=== PATIENT | male | born 1960 | race Caucasian/White ===

== ENCOUNTER 2018-02-08 05:50 | Inpatient (IN) | payer BC ==
[2018-02-01 15:54] VITALS: BMI 33.5
--- NOTE | 2018-02-04 14:45 | HP ---
Admitting History and Physical - Admission Chief Complaint: left hip osteoarthritis x years History of Present Illness: 57 year old male presents today in follow up of his left hip. Longstanding history of left hip osteoarthritis. Patient complains of pain, limited ROM, difficulty ambulating and difficulty completing ADLs. Patient has failed conservative treatment measures including PO medications, activity modification , injections and exercise programs. At this point, patient would like to proceed with surgical intervention - Left total hip arthroplasty, MAKOplasty. History Source: Patient - Past Medical History Cardiovascular: Yes: HTN Renal/: Yes: BPH - Past Surgical History Additional Past Surgical History: See written history & physical - Smoking History Smoking history: Never smoked Have you smoked in the past 12 months: No - Alcohol/Substance Use Hx Alcohol Use: No Home Medications - Allergies Allergies/Adverse Reactions: Allergies Allergy/AdvReac Type Severity Reaction Status Date / Time No Known Allergies Allergy Verified 02/01/18 15:41 - Home Medications Home Medications: Ambulatory Orders Amlodipine Bes/Olmesartan Med [Annemarie 5-20 mg Tablet] 1 each PO DAILY 02/01/18 Tadalafil [Cialis] 5 mg PO DAILY PRN 02/01/18 Review of Systems - Review of Systems Musculoskeletal: reports: Decreased ROM (left hip), Joint Pain (left hip) Physical Examination Constitutional: Yes: Well Nourished, No Distress Eyes: Yes: Conjunctiva Clear HENT: Yes: Atraumatic, Normocephalic Neck: Yes: Supple Cardiovascular: Yes: Regular Rate and Rhythm Respiratory: Yes: Regular Gastrointestinal: Yes: Soft ...Rectal Exam: Yes: Deferred Musculoskeletal: Yes: Joint Stiffness (left hip) Assessment/Plan 57 year old male presents today in follow up of his left hip. Longstanding history of left hip osteoarthritis. Patient complains of pain, limited ROM, difficulty ambulating and difficulty completing ADLs. Patient has failed conservative treatment measures including PO medications, activity modification , injections and exercise programs. At this point, patient would like to proceed with surgical intervention - Left total hip arthroplasty, MAKOplasty. Pros, cons, risks, benefits & alternatives of a left total hip arthroplasty, MAKOplasty were discussed with the patient at length. Patient confirms his understanding and consents to proceed with a left total hip arthroplasty, MAKOplasty.
[2018-02-08] MEDS ORDERED: TRANEXAMIC ACID 1000 MG/10 ML VIAL IVPUSH ONE (06:26)
[2018-02-08] MEDS ORDERED: CEFAZOLIN 2 GM in DEXTROSE 5%-WATER - 50 ML IVPB ONE (06:26)
[2018-02-08] MEDS ORDERED: oxyCODONE HCL 10 MG SUSTAINED ACTING TABLET PO ONE (06:26)
[2018-02-08] MEDS ORDERED: ROPIVICAINE 0.2%/MORPH PF/KETOROLAC - 51ML DISP.SYRINGE IA ONE ×3 (06:26→11:40)
[2018-02-08] MEDS ORDERED: GABAPENTIN 300 MG CAPSULE (FP) PO ONE (06:26)
[2018-02-08] MEDS ORDERED: CELECOXIB 200 MG CAPSULE PO ONE (06:26)
[2018-02-08] MEDS ORDERED: PANTOPRAZOLE 40 MG TABLET (FP) PO ONE (06:27)
[2018-02-08] MEDS ORDERED: VANCOMYCIN 1,000 MG VIAL (RESTRICTED TO ID ONLY) ONE (07:04)
[2018-02-08] MEDS ORDERED: ceFAZolin SODIUM 1 GM VIAL ONE (07:04)
[2018-02-08] MEDS ORDERED: BUPIVACAINE HCL/PF (5 MG/ML) 30 ML VIAL IJ ONE (07:32)
[2018-02-08] MEDS ORDERED: DEXAMETHASONE SOD PHOSPHATE/PF 10 MG/ML SDV ONE (07:32)
[2018-02-08] MEDS ORDERED: LIDOCAINE 1% P/F 10 MG/ML VIAL ONE (07:32)
[2018-02-08] MEDS ORDERED: MIDAZOLAM HCL 2 MG/2 ML SINGLE DOSE VIAL ONE (07:32)
--- NOTE | 2018-02-08 12:07 | OP ---
Operative Note - Note: Operative Date: 02/08/18 Pre-Operative Diagnosis: left hip OA Operation: Left ELKE ELISE Post-Operative Diagnosis: Same as Pre-op Surgeon: Roger Fowler Cleaning Professional: Tomy Echols Anesthesia: Spinal Estimated Blood Loss (mls): 200
--- NOTE | 2018-02-08 12:07 | OP ---
Operative Note - Note: Operative Date: 02/08/18 Pre-Operative Diagnosis: Left hip osteoarthritis Operation: Left hip arthroplasty/makoplasty Post-Operative Diagnosis: Same as Pre-op Surgeon: Roger Fowler Stock Repairer: Tomy Echols Anesthesiologist/CHAINSTITCH BINDER: Chandler Cuenca Anesthesia: General, Spinal Estimated Blood Loss (mls): 200 Operative Report Dictated: Yes
--- NOTE | 2018-02-08 12:09 | SURG ---
Surgery Culinary Assistant Note Culinary Assistant: Tomy Echols PA-C Date of Service: 02/08/18 Diagnosis: Left hip osteoarthritis Procedure: Left hip arthroplasty/makoplasty I was present for the entirety of the operative procedure. For further detail, please refer to operative report.
[2018-02-08] MEDS ORDERED: ONDANSETRON 4 MG/2 ML VIAL IVPUSH PRN ×2 (12:10→12:15)
[2018-02-08] MEDS ORDERED: PROMETHAZINE HCL 25 MG/1 ML VIAL IVPB PRN (12:10)
[2018-02-08] MEDS ORDERED: oxyCODONE HCL 5 MG TABLET PO PRN (12:10)
[2018-02-08] MEDS: KETOROLAC TROMETHAMINE 30 MG/1 ML VIAL IVPUSH SCH ×2 (12:10→17:17)
[2018-02-08] MEDS ORDERED: ACETAMINOPHEN 1000 MG/100 ML VIAL (NON FORMULARY) IVPB ONE (12:14)
[2018-02-08] MEDS ORDERED: LACTATED RINGERS SOLUTION 1,000 ML IV SCH (12:15)
[2018-02-08] MEDS ORDERED: MAGNESIUM HYDROX 2400MG/30ML ORAL SUSPENSION 30 ML CUP PO PRN (12:15)
[2018-02-08] MEDS ORDERED: MAG HYDROX/AL HYDROX/SIMETH 30 ML UNIT-DOSE CUP PO PRN (12:15)
[2018-02-08] MEDS: traMADol HCL 50 MG TABLET PO SCH ×2 (12:16→17:18)
[2018-02-08] MEDS: CEFAZOLIN 2 GM/D5W 2 GM/50 ML ML IVPB SCH (17:17)
[2018-02-08] MEDS: ACETAMINOPHEN 325 MG TABLET (FP) PO SCH (17:18)
[2018-02-08] MEDS ORDERED: DEXAMETHASONE SOD PHOSPHATE 10 MG/1 ML VIAL IVPB ONE (20:00)
--- NOTE | 2018-02-08 21:06 | SPEC ---
DATE OF OPERATION: 02/08/2018 PREOPERATIVE DIAGNOSIS: Left hip osteoarthritis. POSTOPERATIVE DIAGNOSIS: Left hip osteoarthritis. PROCEDURE: Left total hip replacement with MAKOplasty robotic navigation. ATTENDING: Cristian Baugh MD GOSPEL WORKER: Tomy Echols PA-C ANESTHESIA: Spinal plus sedation. ESTIMATED BLOOD LOSS: 200 mL COMPLICATIONS: None. DISPOSITION: The patient was transferred to the PACU in stable condition. IMPLANTS USED: Helena Accolade II size 6 femoral component, Vilma Tritanium 56-mm acetabular component with 30- and 25-mm acetabular screws, MDM bipolar head ball with +4 ceramic inner head. INDICATIONS: This is a 57-year-old male who presented to the office complaining of severe left hip pain. He was seen and examined by Dr. Baugh and diagnosed with left hip osteoarthritis. The patient was initially treated non-operatively with injections, medications, and physical therapy but continued to have severe pain and ambulatory dysfunction. He was, therefore, indicated for a left total hip replacement. The risks, benefits, and alternatives to the procedure were explained to the patient in great detail, and he elected to proceed with the surgery. On the day of surgery, the patient was taken to the operating room and placed on the OR table. Spinal anesthesia was administered by the anesthesiologist. The patient was then positioned in the lateral decubitus position on the table and all bony prominences were padded. An axillary roll was placed. The operative hip was then prepped and draped in the usual sterile fashion and intravenous antibiotics were given for infection prophylaxis. A surgical time-out was then performed with the team, and the patients identity, procedure, side, availability of implants, and the administration of antibiotics were confirmed. An approximately 15-cm longitudinal incision was made through the skin centered on the greater trochanter of the hip. This dissection was carried down through the subcutaneous tissues to the deep fascia. This fascia was then incised and a Cobra was placed around the inferior femoral neck. Electrocautery was used to reflect the anterior 40% of the gluteus medius and minimus starting at the musculotendinous junction and leaving a cuff for closure. This was reflected to reveal the capsule of the hip joint. An anterior capsulectomy was performed and the femoral head and neck were visualized. Grade 4 changes were noted diffusely throughout the joint. At this point, three small stab incisions were made superior to the main incision along the iliac crest. Three self-drilling Steinmann pins were then placed and the Zentrick pelvic array was attached. Reference points on the limb were then entered into the robotic device and the limb length deficiency, offset, and femoral neck resection level were then calculated by the software. The hip was then dislocated with traction and external rotation. An oscillating saw was used to make the femoral neck cut at the level previously templated, and the femoral head was removed. Attention was then turned to the acetabulum. Retractors were then placed around the acetabulum and the labrum was removed. An acetabular checkpoint pin and the Zentrick software were used to register the contours of the acetabulum. The acetabulum was then reamed in a single stage to the preoperatively templated size using the Zentrick robotic arm. The appropriately sized cup was then impacted and had solid fixation as well as the preset inclination and version of 40 and 20 degrees, respectively. A polyethylene liner was then placed in the cup. Attention was then turned back to the femur, which was externally rotated for improved visualization. A femoral neck elevator was used to present the femoral neck cut, a box osteotome was used to enter the femoral canal, and a canal finder was used to go down the femoral shaft. The Gaston broaches were used sequentially until the optimal scratch fit was achieved. This correlated with the preoperatively templated size. From here, several different offset head and neck configurations were tested until excellent stability and length were obtained. These measurements were quantified using the Zentrick software. All trial components were then removed, the femur was copiously irrigated, and the final components were placed. Leg length and stability were checked again and found to be excellent. Irrigation was performed again. Wound closure was started by repairing the abductor muscles with a no. 2 FiberWire stitch in a Krackow configuration passed through bone tunnels in the greater trochanter and tied over a bony bridge. This repair was then reinforced with a 0 V-Loc 180 barbed suture. Next, no. 1 Polysorb and 0 V-Loc 180 were used to close the fascia. The deep subcutaneous tissue was closed with no. 1 Polysorb sutures, and 2-0 Polysorb was used for the superficial subcutaneous tissue. The skin was closed using both 3-0 V-Loc 90 suture in a running subcuticular fashion and SwiftSet skin adhesive. The Gaston array and pins were removed from the iliac crest and the stab incision sites were irrigated and closed with 4-0 Polysorb sutures and SwiftSet skin adhesive. Once this was completed, a sterile dressing was applied. The patient was then awakened and taken to the PACU in stable condition. ADDENDUM: After final implants were placed, a 3-minute dilute Betadine lavage was performed. Following this, the wound was thoroughly irrigated with normal saline, and wound closure was begun. CRISTIAN BAUGH M.D. [id number]
[2018-02-08] MEDS: ASCORBIC ACID 500 MG TABLET (FP) PO SCH (21:12)
[2018-02-08] MEDS: oxyCODONE HCL 10 MG SUSTAINED ACTING TABLET PO SCH (21:12)
[2018-02-08] MEDS: GABAPENTIN 300 MG CAPSULE (FP) PO SCH (21:12)
[2018-02-08] MEDS: CELECOXIB 200 MG CAPSULE PO SCH (21:12)
[2018-02-08] MEDS: SENNOSIDES/DOCUSATE COMBO (SENNA PLUS) TABLET (UD) PO SCH (22:00)
[2018-02-09] MEDS: traMADol HCL 50 MG TABLET PO SCH ×4 (00:15→18:06)
[2018-02-09] MEDS: KETOROLAC TROMETHAMINE 30 MG/1 ML VIAL IVPUSH SCH ×2 (00:15→05:53)
[2018-02-09] MEDS: CEFAZOLIN 2 GM/D5W 2 GM/50 ML ML IVPB SCH (01:19)
[2018-02-09] MEDS: ACETAMINOPHEN 325 MG TABLET (FP) PO SCH ×4 (05:54→18:05)
[2018-02-09 08:06] LABS: HEMATOCRIT 39.1 % (35.4-49); HEMOGLOBIN 12.7 GM/dl (11.7-16.9); MCH 29.5 pg (25.7-33.7); MCHC 32.6 g/dl (32.0-35.9); MEAN CELL VOLUME 90.5 fl (80-96); MEAN PLT VOLUME 8.3 fl (7.5-11.1); PLATELET COUNT 312 K/MM3 (134-434); RBC 4.32 M/mm3 (4.00-5.60); RDW 13.5 % (11.9-15.9); WHITE BLOOD COUNT 16.5 K/mm3 (4.0-10.8)
[2018-02-09] MEDS: ASPIRIN 325 MG TABLET PO SCH (09:00)
[2018-02-09] MEDS: SENNOSIDES/DOCUSATE COMBO (SENNA PLUS) TABLET (UD) PO SCH ×2 (09:53→21:15)
[2018-02-09] MEDS: VALSARTAN 160 MG TABLET (UD) PO SCH (09:54)
[2018-02-09] MEDS: GABAPENTIN 300 MG CAPSULE (FP) PO SCH ×2 (09:54→21:15)
[2018-02-09] MEDS: amLODIPine BESYLATE 5 MG TABLET (FP) PO SCH (09:54)
[2018-02-09] MEDS: CELECOXIB 200 MG CAPSULE PO SCH ×2 (09:55→21:16)
[2018-02-09] MEDS: MULTIVITAMINS (DAILY MVI) TABLET (FP) PO SCH (09:55)
[2018-02-09] MEDS: PANTOPRAZOLE 40 MG TABLET (FP) PO SCH (09:55)
[2018-02-09] MEDS: ASCORBIC ACID 500 MG TABLET (FP) PO SCH ×2 (09:56→21:15)
[2018-02-09] MEDS: oxyCODONE HCL 10 MG SUSTAINED ACTING TABLET PO SCH ×2 (09:56→21:16)
[2018-02-09] MEDS: oxyCODONE HCL 5 MG TABLET PO PRN ×2 (09:57→21:28)
[2018-02-09] MEDS ORDERED: PATIENT'S OWN MEDICATION (NON-FORMULARY) (Amlodipine Bes/Olmesartan Med [Azor 5-20 Mg Tabl PO SCH (10:00)
--- NOTE | 2018-02-09 12:57 | PN ---
Progress Note (short form) - Note Progress Note: 57M POD1 s/p L THR under spinal anesthetic with peripheral nerve block for post operative pain relief. Pt states that pain is well controlled and reports no anesthetic complications. AVSS. Motor and sensory function intact in bilateral lower extremities. Continue current regimen.
[2018-02-10] MEDS: traMADol HCL 50 MG TABLET PO SCH ×3 (00:15→11:55)
[2018-02-10] MEDS: ACETAMINOPHEN 325 MG TABLET (FP) PO SCH ×3 (06:03→11:55)
[2018-02-10] MEDS: ASPIRIN 325 MG TABLET PO SCH (08:05)
[2018-02-10 08:23] LABS: HEMATOCRIT 37.1 % (35.4-49); HEMOGLOBIN 12.3 GM/dl (11.7-16.9); MCH 30.2 pg (25.7-33.7); MCHC 33.2 g/dl (32.0-35.9); MEAN CELL VOLUME 91.1 fl (80-96); MEAN PLT VOLUME 8.1 fl (7.5-11.1); PLATELET COUNT 290 K/MM3 (134-434); RBC 4.08 M/mm3 (4.00-5.60); RDW 13.6 % (11.9-15.9); WHITE BLOOD COUNT 12.5 K/mm3 (4.0-10.8)
[2018-02-10 08:25] LABS: ANION GAP 8 MMOL/L (8-16); BLOOD UREA NITROGEN 23 mg/dl (7-18); CALCIUM 8.9 mg/dl (8.4-10.2); CHLORIDE 99 mmol/L (98-107); CO2 27 mmol/L (22-28); CREATININE 1.1 mg/dl (0.6-1.3); GLUCOSE,RANDOM 107 mg/dl (74-106); POTASSIUM 4.1 mmol/L (3.5-5.1); SODIUM 134 mmol/L (136-145)
[2018-02-10 09:10] VITALS: BP 120/62; PULSE 68; TEMP 98.4
[2018-02-10] MEDS: ASCORBIC ACID 500 MG TABLET (FP) PO SCH (09:10)
[2018-02-10] MEDS: MULTIVITAMINS (DAILY MVI) TABLET (FP) PO SCH (09:10)
[2018-02-10] MEDS: amLODIPine BESYLATE 5 MG TABLET (FP) PO SCH (09:10)
[2018-02-10] MEDS: CELECOXIB 200 MG CAPSULE PO SCH (09:10)
[2018-02-10] MEDS: GABAPENTIN 300 MG CAPSULE (FP) PO SCH (09:10)
[2018-02-10] MEDS: SENNOSIDES/DOCUSATE COMBO (SENNA PLUS) TABLET (UD) PO SCH (09:10)
[2018-02-10] MEDS: VALSARTAN 160 MG TABLET (UD) PO SCH (09:10)
[2018-02-10] MEDS: PANTOPRAZOLE 40 MG TABLET (FP) PO SCH (09:10)
[2018-02-10] MEDS: oxyCODONE HCL 10 MG SUSTAINED ACTING TABLET PO SCH (09:11)
--- NOTE | 2018-02-10 13:11 | DS ---
Physical Examination Vital Signs: Vital Signs Temperature 98.4 F 02/10/18 09:09 Pulse Rate 68 02/10/18 09:09 Respiratory Rate 17 02/10/18 09:09 Blood Pressure 120/62 02/10/18 09:09 O2 Sat by Pulse Oximetry (%) 96 02/10/18 06:00 Labs: CBC, BMP 02/10/18 07:00 02/10/18 07:00 Discharge Summary Reason For Visit: LEFT HIP OSTEOARTHRITIS Current Active Problems Osteoarthritis of left hip (Acute) Procedures: Principal: left ELKE ELISE Hospital Course: Admitted for elective surgery. Procedure performed without complications. Pt received postoperative antibiotic prophylaxis and DVT ppx. Ambulated with physical therapy. Stable for discharge home with outpatient followup. Condition: Stable - Instructions Diet, Activity, Other Instructions: Dr Fowler - Hip Replacement Instructions Keep the Aquacel dressing on until removed by Dr. Fowler in 10-14 days - it is antibacterial and waterproof and you can shower with it on. Call the office for a follow-up appointment with Dr. Fowler in 10-14 days. Take one Aspirin 325mg daily for 6 weeks to prevent blood clots in your legs. Take one Pantoprazole 40mg daily for 6 weeks to protect against heartburn and ulcers. Take Cephalexin (antibiotic) 3x/day for 10 days to help prevent skin infection. Take Celebrex 200mg twice daily for 30 days to reduce swelling and inflammation. Take a multivitamin, stool softener and extra Vitamin C supplement daily. For pain: *Mild pain (1-3/10): Take 1 Tramadol tablet every 4 hours as needed. Moderate pain (4-6/10): Take 1 Tramadol tablet and 1 Percocet tablet every 4 hours as needed. Severe pain (7-10/10): Take 1 Tramadol tablet and 2 Percocet tablets every 4 hours as needed. Activity: You can put as much weight on the operative leg as you want. For the first 6 weeks, all you need to do is walk around the house, go up/down stairs, and sit down/get up. After 6 weeks when everything is healed (and bone has grown into the implant) you will be sent for more intensive outpatient physical therapy. Always use a walker or cane for balance and to prevent falls. Expect to see swelling / bruising from the operative site all the way down to your toes. Wear the Compression stocking on the operative side during the day to minimize how much swelling there is in your foot/ankle. Don't wear the stocking at night. You don't have to wear the stocking on the other side. Disposition: VNS/HOME HEALTH CARE - Home Medications Comprehensive Discharge Medication List: Ambulatory Orders Amlodipine Bes/Olmesartan Med [Annemarie 5-20 mg Tablet] 1 each PO DAILY 02/01/18 Tadalafil [Cialis] 5 mg PO DAILY PRN 02/01/18 Ascorbic Acid [Vitamin C -] 500 mg PO BID tablet 02/10/18 Aspirin [ASA -] 325 mg PO DAILY@0800 tablet 02/10/18 Celecoxib [CeleBREX -] 200 mg PO BID #60 capsule 02/10/18 Cephalexin Monohydrate [Keflex -] 500 mg PO TID #30 capsule 02/10/18 Multivitamins [Multivit ([facility] Formulary)] 1 tab PO DAILY tab 02/10/18 Oxycodone HCl/Acetaminophen [Percocet 5-325 mg Tablet] 1 - 2 tab PO Q4H PRN #60 tablet MDD 10 02/10/18 Pantoprazole Sodium [Protonix -] 40 mg PO DAILY #40 tablet.ec 02/10/18 Sennosides/Docusate Sodium [Pericolace -] 2 tablet PO BID tablet 02/10/18 traMADol HCL [Ultram -] 50 mg PO Q4H PRN #42 tablet MDD 6 02/10/18
--- NOTE | 2018-02-10 16:56 | PATH ---
Surgical Pathology Report Patient Name: VERONICA BETANCOURT Med. Rec. #: [id number] /Age/Gender: 1960 (Age: 57) / M Account: [id number] Location: [facility] MED-SURG Taken: 02/08/2018 Received: 02/08/2018 Reported: 02/10/2018 Physicians: Roger Fowler M.D. Specimen(s) Received LEFT FEMORAL HEAD Clinical History Left hip osteoarthritis Final Diagnosis BONE, FEMORAL HEAD, LEFT, TOTAL HIP REPLACEMENT MAKOPASTY: BONE WITH DEGENERATIVE JOINT DISEASE. Electronically Signed Emilia Asencio M.D. Gross Description Received in formalin labeled "left femoral head," is a 4.8 x 4.8 x 3.5 cm femoral head with no femoral neck attached. The margin of resection is red-brown, jagged and hemorrhagic. There is a 5.2 cm greatest dimension area of eburnation present. The remaining articular surface is cabrera-yellow and focally granular. The underlying trabecular bone is yellow, hard and focally hemorrhagic. Also received within the same container is an additional 4.5 x 2.5 x 2.5 cm hemorrhagic portion of bone, consistent with a portion of femoral neck. Account Manager B2B sections are submitted in one cassette, following decalcification. 02/09/201802/09/2018
--- NOTE | 2018-02-10 19:27 | PN ---
Progress Note (short form) - Note Progress Note: Pt seen and examined. Doing well. AVSS Selected Entries 02/10/18 02/10/18 06:00 09:09 Temperature 98.4 F Pulse Rate 68 Respiratory 17 Rate Blood Pressure 120/62 O2 Sat by Pulse 96 Oximetry (%) Oxygen Delivery Room Air Method Laboratory Tests 02/09/18 02/10/18 02/10/18 07:32 07:00 07:00 WBC 16.5 H 12.5 H Hgb 12.7 12.3 Hct 39.1 37.1 Plt Count 312 290 Sodium 134 L Potassium 4.1 Chloride 99 Carbon Dioxide 27 Anion Gap 8 BUN 23 H Creatinine 1.1 Creat Clearance w eGFR > 60 Random Glucose 107 H Calcium 8.9 Gen: NAD LLE c/d/i, NVID A/P s/p L ELKE OLIVARES PT/OOB D/C home today
== END 2018-02-10 14:44 | disposition home health service (06) | DRG 470 ==
LOC: FM/S 05:50
PROVIDERS: ADMIT Student in an Organized Health Care Education/Training Program; ATTEND Student in an Organized Health Care Education/Training Program
PROC: 8E0Y0CZ Robotic Assisted Procedure of Lower Extremity, Open Approach (ICD-10-PCS; 2018-02-08)
PROC: 0SRB0JZ Replacement of Left Hip Joint with Synthetic Substitute, Open Approach (ICD-10-PCS; principal; 2018-02-08 09:09)
DX: M16.12 Unilateral primary osteoarthritis, left hip (principal); I10 Essential (primary) hypertension; N40.0 Benign prostatic hyperplasia without lower urinary tract symptoms
CPT/HCPCS: 36415; 73502-TC-LT-FY; 80048; 85027; 86803; 87389; 88305-TC; 88311-TC; 94760; 97116-GP; 97162-GP; J0131; J1100

== ENCOUNTER 2019-06-06 05:51 | Emergency (ER) | payer BC ==
[2019-06-06 06:16] VITALS: BMI 32.3
[2019-06-06] MEDS ORDERED: ACETAMINOPHEN 325 MG TABLET (FP) PO ONE (07:29)
--- NOTE | 2019-06-06 07:30 | PDOC ---
History of Present Illness - General Chief Complaint: Cold Symptoms Stated Complaint: THROAT PAIN Time Seen by Provider: 06/06/19 07:20 Past History - Past Medical History Allergies/Adverse Reactions: Allergies Allergy/AdvReac Type Severity Reaction Status Date / Time No Known Allergies Allergy Verified 02/01/18 15:41 Home Medications: Ambulatory Orders Amlodipine Bes/Olmesartan Med [Annemarie 5-20 mg Tablet] 1 each PO DAILY 02/01/18 Tadalafil [Cialis] 5 mg PO DAILY PRN 02/01/18 Ascorbic Acid [Vitamin C -] 500 mg PO BID tablet 02/10/18 Aspirin [ASA -] 325 mg PO DAILY@0800 tablet 02/10/18 Celecoxib [CeleBREX -] 200 mg PO BID #60 capsule 02/10/18 Cephalexin Monohydrate [Keflex -] 500 mg PO TID #30 capsule 02/10/18 Multivitamins [Multivit ([facility] Formulary)] 1 tab PO DAILY tab 02/10/18 Oxycodone HCl/Acetaminophen [Percocet 5-325 mg Tablet] 1 - 2 tab PO Q4H PRN #60 tablet MDD 10 02/10/18 Pantoprazole Sodium [Protonix -] 40 mg PO DAILY #40 tablet.ec 02/10/18 Sennosides/Docusate Sodium [Pericolace -] 2 tablet PO BID tablet 02/10/18 traMADol HCL [Ultram -] 50 mg PO Q4H PRN #42 tablet MDD 6 02/10/18 Anemia: No Asthma: No Cancer: No Cardiac Disorders: No CVA: No COPD: No CHF: No Dementia: No Diabetes: No GI Disorders: No Disorders: No (INFLAMMATION OF THE PROSTATE IN THE PAST) HTN: Yes Hypercholesterolemia: No Liver Disease: No Seizures: No Thyroid Disease: No - Surgical History Abdominal Surgery: No Appendectomy: No Cardiac Surgery: No Cholecystectomy: No Lung Surgery: No Neurologic Surgery: No Orthopedic Surgery: Yes (LEFT KNEE ARTHROSCOPY) - Psycho Social/Smoking Cessation Hx Smoking History: Never smoked Have you smoked in the past 12 months: No Hx Alcohol Use: No Drug/Substance Use Hx: No Substance Use Type: None Hx Substance Use Treatment: No *Physical Exam - Vital Signs Last Vital Signs Temp Pulse Resp BP Pulse Ox 97.8 F 82 18 133/86 98 06/06/19 06:13 06/06/19 06:13 06/06/19 06:13 06/06/19 06:13 06/06/19 06:13 06/06/19 08:51 58 y/o male PMH OA and BPH c/o cough. He has experienced this before and it resolved with OTC/conservative management from home. Cough for started 5 days ago and is productive of less than a teaspoon of green to white sputum/into tissue. He reports assoc post-tussive CP and BARRIOS. CP is reporducible and relieved with rest. He has taken cefdinir & Tylenol cold/flu at home for the last 3 days and reports improvement. His has similar symptoms and they note that symptoms are now resolved. 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 No one at work is experiencing these symptoms. He denies SOB, abdominal pain, FNVD, chills, and constipation No new meds/herbs, drugs/supplements No recent illness or recent travel Fam hx: Sister DM, Mother DM, Father emphysema Surg hx: LEFT total hip replacement (2018), LEFT meniscus repair (2018) Social hx: Never smoker, denies etoh, denies recreational drug use. Works as flash welder, lives at home with and 2 children, no pets Sexual hx: sexually active with only, no h/o STI REVIEW OF SYSTEMS CONSTITUTIONAL: Absent: fever, chills, diaphoresis, generalized weakness, malaise, loss of appetite, weight change HEENT: Absent: rhinorrhea, nasal congestion, throat pain, throat swelling, difficulty swallowing, mouth swelling, ear pain, eye pain, visual changes CARDIOVASCULAR: Absent: chest pain, syncope, palpitations, irregular heart rate, lightheadedness, peripheral edema RESPIRATORY: Absent: cough, shortness of breath, dyspnea with exertion, orthopnea, wheezing, stridor, hemoptysis GASTROINTESTINAL: Absent: abdominal pain, abdominal distension, nausea, vomiting, diarrhea, constipation, melena, hematochezia GENITOURINARY: Absent: dysuria, frequency, urgency, hesitancy, hematuria, flank pain, genital pain MUSCULOSKELETAL: Absent: myalgia, arthralgia, joint swelling, back pain, neck pain SKIN: Absent: rash, itching, pallor HEMATOLOGIC/IMMUNOLOGIC: Absent: easy bleeding, easy bruising, lymphadenopathy, frequent infections ENDOCRINE: Absent: unexplained weight gain, unexplained weight loss, heat intolerance, cold intolerance NEUROLOGIC: Absent: headache, focal weakness or paresthesias, dizziness, unsteady gait, seizure, mental status changes, bladder or bowel incontinence PSYCHIATRIC: Absent: anxiety, depression, suicidal or homicidal ideation, hallucinations. GENERAL: AO x3 NAD HEAD: NCAT EYES: GENIA, EOMI, sclera anicteric, conjunctiva clear. No ptosis. ENT: Ears normal, nares patent, oropharynx clear without exudates, moist mucous membranes. NECK: Trachea midline, full range of motion, supple. LUNGS: CTAB , no wheezes, no crackles, no accessory muscle use. HEART: RRR, S1, S2 without murmur, rub or gallop. ABDOMEN: Soft, nontender, nondistended, normoactive bowel sounds, no guarding, no rebound, no hepatosplenomegaly, no masses. EXTREMITIES: 2+ pulses, warm, well-perfused, no edema. NEUROLOGICAL: Cranial nerves II through XII grossly intact. Normal speech, gait not observed. PSYCH: Normal mood, normal affect. SKIN: Warm, dry, normal turgor, no rashes or lesions noted A/P # URI - PO fluids - Acetominophen for pain relief - Bedrest - F/u with PCP 06/08/19 17:58 Discussed with team. DC home with conservative management and requested work note. Pt educated on when to return to ED. Discharge - Discharge Information Problems reviewed: Yes Clinical Impression/Diagnosis: URI (upper respiratory infection) Qualifiers: URI type: unspecified viral URI Qualified Code(s): J06.9 - Acute upper respiratory infection, unspecified Condition: Improved Disposition: HOME - Admission No - Follow up/Referral - Patient Discharge Instructions Patient Printed Discharge Instructions: How to Avoid a Cold or Flu - Post Discharge Activity Work/Back to School Note: Back to Work
[2019-06-06] MEDS ORDERED: ACETAMINOPHEN 325 MG TABLET (FP) ONE (07:32)
--- NOTE | 2019-06-06 07:33 | PDOC ---
Attending Attestation - Resident Resident Name: JuanKandi - ED Attending Attestation I have performed the following: I have examined & evaluated the patient, The case was reviewed & discussed with the resident, I agree w/resident's findings & plan, Exceptions are as noted - HPI HPI: 06/06/19 07:30 58y M no pmhx presents with approx 5 days of coughing, sore throat, and now nasal congestion. Patient endorsed a mild subjective fever on day 1 but no fever since that day. The patient denies any shortness of breath, chest pain, nausea, vomiting, abdominal pain, diarrhea, dysuria, dyspnea on exertion, leg swelling, hemoptysis. No recent travel. Patient notes that his is now exhibiting similar symptoms. Patient presented today as he was due to go to work and the symptoms are not better. Patient states that he has been taking a leftover course of antibiotics for an ear infection. Patient denies any headache, focal numbness, tingling, weakness, back pain. - Physicial Exam PE: 06/06/19 07:32 GENERAL: The patient is awake, alert, and fully oriented, Nontoxic - in no acute distress. HEAD: Normocephalic, atraumatic. EYES: extraocular movements intact, sclera anicteric, conjunctiva clear. ENT: Normal voice, Moist mucous membranes, mild posterior pharyngeal erythema without any exudates or asymmetry NECK: Normal range of motion, supple LUNGS: Breath sounds equal, clear to auscultation bilaterally. No wheezes, no rhonchi, no rales. HEART: Regular rate and rhythm, normal S1 and S2 without murmur, rub or gallop. ABDOMEN: Soft, nontender, No guarding, no rebound. No CVA tenderness EXTREMITIES: Normal range of motion, no edema. Negative Homans, no calf tenderness NEUROLOGICAL: No facial assymetry, Normal speech, PSYCH: Normal mood, normal affect. SKIN: Warm, Dry, normal turgor, - Medical Decision Making 06/06/19 07:32 The symptoms may be due to URI, will give acetaminophen, supportive care at home.
[2019-06-06 07:41] VITALS: BP 130/65; PULSE 75
[2019-06-06 07:54] VITALS: TEMP 98
== END 2019-06-06 09:24 | disposition home or self-care (01) ==
LOC: JER 05:51
DX: J06.9 Acute upper respiratory infection, unspecified (principal); B97.89 Other viral agents as the cause of diseases classified elsewhere; I10 Essential (primary) hypertension; N40.0 Benign prostatic hyperplasia without lower urinary tract symptoms; M19.90 Unspecified osteoarthritis, unspecified site; Z96.642 Presence of left artificial hip joint
CPT/HCPCS: 99282-25